=== PATIENT | male | born 1960 | race Caucasian/White ===

== ENCOUNTER 2019-06-15 06:22 | Day surgery (SDC) | payer OTHER ==
[~2019-06-15] VITALS: Ht 162.6 cm; Wt 68.4 kg
[~2019-06-15 06:22] MED LIST: ASPI-817 PO; ATOR-2 PO; CLOP75TA27 PO; OMEG-105 PO
[2019-06-15 07:04] VITALS: Ht 162.6 cm; Wt 68.4 kg
[2019-06-15 07:28] VITALS: BP 124/70; PULSE 52; RESP 20
[2019-06-15] MEDS ORDERED: PROPOFOL 60 ML ONE (07:35)
[2019-06-15] MEDS ORDERED: LIDOCAINE 2% (SDV) 5 ML INJ ONE (07:35)
[2019-06-15] MEDS ORDERED: PROPOFOL 200 MG INJ ONE (07:35)
[2019-06-15] MEDS ORDERED: LABETALOL HCL 20MG INJ IV PRN (08:30)
[2019-06-15] MEDS ORDERED: ONDANSETRON 4 MG INJ IV PRN (08:30)
[2019-06-15] MEDS ORDERED: FENTAnyl 50 MCG/ML VIAL IV PRN (08:30)
[2019-06-15] MEDS ORDERED: hydrALAzine 20 MG INJ IV PRN (08:30)
[2019-06-15] MEDS ORDERED: ALBUTEROL 0.083% (NEB) 2.5 MG/3 ML AMP HHN PRN (08:30)
[2019-06-15] MEDS ORDERED: EPHEDrine 25 MG/5 ML SYG IV PRN (08:30)
[2019-06-15] MEDS ORDERED: MEPERIDINE 25 MG INJ IV PRN (08:30)
[2019-06-15] MEDS ORDERED: DIPHENHYDRAMINE 50 MG INJ IV PRN (08:30)
[2019-06-15 08:36] VITALS: BP 112/67; RESP 16
== END 2019-06-15 12:57 | disposition home or self-care (01) ==
LOC: GIL 06:22
PROVIDERS: ATTEND Internal Medicine Gastroenterology
DX: Z12.11 Encounter for screening for malignant neoplasm of colon (principal); D12.8 Benign neoplasm of rectum; K57.30 Diverticulosis of large intestine without perforation or abscess without bleeding; K29.30 Chronic superficial gastritis without bleeding; I25.10 Atherosclerotic heart disease of native coronary artery without angina pectoris; I10 Essential (primary) hypertension; Z79.82 Long term (current) use of aspirin
CPT/HCPCS: 88305; 88312